=== PATIENT | male | born 1970 | race Caucasian/White ===

== ENCOUNTER 2016-10-04 08:04 | Day surgery (SDC) | payer OTHER ==
[~2016-10-04] VITALS: Ht 170.2 cm; Wt 70.3 kg
[~2016-10-04 08:04] MED LIST: BUPIVACAINE MPF 0.5% 30 ML VIAL. ONE; EPINEPHrine VIAL 30 MG/30 ML VIAL ONE; HYDROmorphone 2 MG/ML VIAL IV PRN; IV RINGERS,LACTATED 1000ML 1,000 ML IV SCH; LIDOCAINE 1% 1 ML SYRINGE. ID PRN; LIDOCAINE 1% PF 30 ML VIAL. ONE; MORPHINE SULFATE 2 MG/ML DISP.SYRIN. IV PRN; ONDANSETRON PF 4 MG/2 ML VIAL. IV PRN; PROCHLORPERAZINE 10 MG/2 ML VIAL. IV PRN; fentaNYL PF VIAL 100 MCG/2 ML VIAL IV PRN
[2016-10-04] MEDS ORDERED: DICL75TA PO (08:34)
[2016-10-04] MEDS ORDERED: HYDR-971 PO (08:34)
[2016-10-04] MEDS ORDERED: LIDOCAINE 2% PF Vial for OR 5 ML VIAL. ONE (08:38)
[2016-10-04] MEDS ORDERED: DEXAMETHASONE SOD PHOS 20 MG/5 ML VIAL. ONE (08:38)
[2016-10-04] MEDS ORDERED: PROPOFOL 20 ML IV ONE (08:38)
[2016-10-04] MEDS ORDERED: ONDANSETRON PF 4 MG/2 ML VIAL. ONE (08:38)
[2016-10-04] MEDS ORDERED: fentaNYL PF VIAL 100 MCG/2 ML VIAL ONE ×2 (08:38→10:14)
[2016-10-04] MEDS ORDERED: DESFLURANE 61 TO 120 MINUTES IH ONE (08:38)
--- NOTE | 2016-10-04 09:17 | DISCH ---
DISCHARGE INSTRUCTIONS Condition on Discharge Condition on Discharge: Stable Activity After Discharge Activity Instructions for Disc: Activity as tolerated Bathing Instructions: Shower-keep dressing dry Weight Bearing Status after Di: As tolerated Diet after Discharge Diet after Discharge: Regular Wound Incision Care Wound/Incision Care: Ice to area for comfort, Keep wound/cast CDI, Change dressing Contacting the DRMine after DC Call your doctor for: Concerns you may have Follow-Up Follow up with: Jasbir in 2wks PEREZ ACOSTA II, MD Oct 04, 2016 09:17
--- NOTE | 2016-10-04 09:19 | PDOC ---
BRIEF OPERATIVE NOTE Date: Oct 04, 2016 Pre-Op Diagnosis R knee meniscal tears Post-Op Diagnosis same Procedure Performed Right knee scope, partial meniscectomies Surgeon Jasbir Anesthesiologist Aaron Anesthesia Type: General Blood Loss 10mL Complications none PEREZ ACOSTA II, MD Oct 04, 2016 09:19
[2016-10-04] MEDS: fentaNYL PF VIAL 100 MCG/2 ML VIAL IV PRN ×2 (10:18→10:44)
[2016-10-04] MEDS ORDERED: HYDROcodone/APAP 5/325MG 1 TAB TABLET PO ONE (10:30)
--- NOTE | 2016-10-04 10:31 | OP ---
DATE OF SURGERY: 10/04/2016 SURGEON: Baltazar Acosta MD NEWBORN PHOTOGRAPHER: None. PREOPERATIVE DIAGNOSIS: Right knee medial and lateral meniscus tears. POSTOPERATIVE DIAGNOSIS: Right knee medial and lateral meniscus tears. PROCEDURE PERFORMED: Right knee arthroscopy and partial medial and lateral meniscectomy. COMPLICATIONS: None. TOURNIQUET TIME: 23 minutes BLOOD LOSS: 10 mL FINDINGS: The patient had intact cartilage at his patellofemoral articulation, medial and lateral compartments. He had an oblique undersurface tear of his medial meniscus at the posterior portion of the body. He had a complex lateral meniscus tear involving the mid portion of the body as well. Intact cruciate ligaments. COMPLICATIONS: None. REASON FOR PROCEDURE: The patient is a very pleasant 45-year-old gentleman with primarily medial knee pain after an injury a couple of months ago. We had tried conservative therapies on him but after those failed to alleviate his pain successfully, we had discussion of risks, benefits, alternatives to the above surgery after clinical radiographic and MRI examinations were performed by myself. After reviewing these and discussing options with him, he wished to proceed with the above surgery. DESCRIPTION OF PROCEDURE: The patient was greeted in the preoperative area by myself, where the correct extremity was marked and verified. He was taken to the operative suite and his antibiotics were started en route. Once in the OR, he was transferred gently supine to the OR table and secured to the bed with all pressure points padded. He then underwent successful induction with general anesthetic. After this, we applied a padded foot rest as well as a bolster at his lateral hip and a nonsterile tourniquet to his left upper thigh. We then proceeded to prep and drape left lower extremity in our usual sterile fashion and conducted our standard preoperative timeout. After this was accomplished, I palpated and marked surface anatomy and made my standard anterolateral arthroscopic portal and introduced a blunt arthroscopic trocar into the suprapatellar pouch. I then conducted my diagnostic arthroscopy with the above noted findings and upon entering the medial compartment, I used a spinal needle to localize the anteromedial portal and introduced a probe and then inspected the medial meniscus tear. I then used a combination of shaver and biter to trim the loose flap back to stable edges. I then placed the leg in a [id number] position and used a combination of shaver and biters to debride his lateral meniscus tear back to stable edges. I then used a probe to ensure that there were no more loose flaps at either meniscal tear. After this, I introduced a shaver and camera into the suprapatellar pouch and performed repeated aspiration maneuvers through the shaver to ensure I had removed any loose pieces. I then removed all excess arthroscopic fluid and the arthroscopic instrumentation. His portals were closed with simple interrupted 3-0 nylon. I then injected a local anesthetic mixture into the periportal areas. Now, we then placed Xeroform, sterile gauze, ABD, sterile cast padding and Raul wrap to his knee. He was then awakened from anesthesia, he tolerated surgery well. No complications. At the conclusion of surgery, he was awakened from anesthesia and transferred gently supine to the recovery room cart and taken to PACU in stable and extubated condition. Postoperative plan is to discharge the patient home. He will be weightbearing as tolerated. He will follow up with me in 2 weeks. We did discuss rehab and he would to like to work on his own for a while. BALTAZAR ACOSTA MD DR: EMILY/hugh JOB#: [id number] / [id number] TINO
[2016-10-04 10:55] VITALS: BP 130/60
--- NOTE | 2016-10-05 09:47 | PDOC4 ---
Operative Note Operative Note The surgical procedure performed 10/04/2016 was left knee arthroscopy, not right , with partial medial and partial lateral meniscectomies PEREZ ACOSTA II, MD Oct 05, 2016 09:47
== END 2016-10-04 11:22 | disposition home or self-care (01) ==
LOC: SURG 08:04
PROVIDERS: ATTEND Orthopaedic Surgery Sports Medicine
DX: S83.281A Other tear of lateral meniscus, current injury, right knee, initial encounter (principal); S83.241A Other tear of medial meniscus, current injury, right knee, initial encounter; X58.XXXA Exposure to other specified factors, initial encounter; Y93.89 Activity, other specified; Y92.89 Other specified places as the place of occurrence of the external cause; Y99.9 Unspecified external cause status; Z87.39 Personal history of other diseases of the musculoskeletal system and connective tissue
CPT/HCPCS: 29880; J0171; J0690; J1100; J2405; J2704; J3010; J3490; C1782; J7120; J2001

== ENCOUNTER → 2018-09-16 | Outpatient (CLI) | payer OTHER ==
[~2018-09-16] MED LIST changes: -BUPIVACAINE MPF 0.5% 30 ML VIAL. ONE; +DICL75TA PO; -EPINEPHrine VIAL 30 MG/30 ML VIAL ONE; +HYDR-3164 PO; -HYDROmorphone 2 MG/ML VIAL IV PRN; -IV RINGERS,LACTATED 1000ML 1,000 ML IV SCH; -LIDOCAINE 1% 1 ML SYRINGE. ID PRN; -LIDOCAINE 1% PF 30 ML VIAL. ONE; -MORPHINE SULFATE 2 MG/ML DISP.SYRIN. IV PRN; -ONDANSETRON PF 4 MG/2 ML VIAL. IV PRN; -PROCHLORPERAZINE 10 MG/2 ML VIAL. IV PRN; -fentaNYL PF VIAL 100 MCG/2 ML VIAL IV PRN
--- NOTE | 2018-09-16 09:45 | RAD ---
Examination: MRI of the right knee without contrast HISTORY: History of medial right anterior knee pain COMPARISON: None available Technique: Multiplanar, multisequence MR imaging of the right knee was performed without contrast. FINDINGS: The anterior cruciate ligament, posterior cruciate ligament appear intact. There is increased T2 signal identified in the inferior articular surface of the body and posterior horn of the medial meniscus likely tear. Lateral meniscus appears intact. The medial collateral ligament is intact. The lateral collateral ligamentous complex including the fibular collateral ligament, biceps femoris tendon, popliteus tendon appear intact. The extensor mechanism is intact. Small knee joint effusion is identified. The medial retinaculum, lateral retinaculum appear intact. Minimal superficial fraying of cartilage identified in the medial, lateral, patellofemoral compartments. There is mild trabecular edema identified in the medial femoral condyle. IMPRESSION: 1. Tear of the body and posterior horn of the medial meniscus. 2. Grade I chondromalacia medial compartment with mild trabecular edema identified in the medial femoral condyle. 3. Small knee joint effusion. Electronically signed by: Shadi Davis MD (09/16/2018 9:42 AM) [id number]
== END | disposition home or self-care (01) ==
LOC: MRI 08:04
PROVIDERS: ATTEND Orthopaedic Surgery Sports Medicine
DX: S83.241A Other tear of medial meniscus, current injury, right knee, initial encounter (principal); M94.261 Chondromalacia, right knee; M25.461 Effusion, right knee; X58.XXXA Exposure to other specified factors, initial encounter; Y93.89 Activity, other specified; Y92.89 Other specified places as the place of occurrence of the external cause; Y99.8 Other external cause status
CPT/HCPCS: 73721

== ENCOUNTER → 2018-09-23 | Day surgery (SDC) | payer OTHER ==
[~2018-09-23] VITALS: Ht 170.2 cm; Wt 73.9 kg
[~2018-09-23] MED LIST changes: +BUPIVACAINE MPF 0.5% 30 ML VIAL. ONE; +DEXAMETHASONE SOD PHOS 4 MG/ML VIAL ONE; +EPINEPHrine VIAL 30 MG/30 ML VIAL ONE; +HYDROcodone/APAP 5/325MG 1 TAB TABLET PO ONE; +HYDROmorphone 2 MG/ML VIAL IV PRN; +IBUP200T44 PO; +IV RINGERS,LACTATED 1000ML 1,000 ML IV SCH; +KETOROLAC 30 MG/ML INJ FOR OR. INJ ONE; +LIDOCAINE 1% PF 2 ML VIAL. ID PRN; +LIDOCAINE 1% PF 30 ML VIAL. ONE; +LIDOCAINE 2% PF 5 ML VIAL. ONE; +MIDAZOLAM HCL/PF 2 MG/2 ML VIAL. ONE; +MORPHINE SULFATE 2 MG/ML VIAL. IV PRN; +ONDANSETRON PF 4 MG/2 ML VIAL. IV PRN; +ONDANSETRON PF 4 MG/2 ML VIAL. ONE; +PROCHLORPERAZINE 10 MG/2 ML VIAL. IV PRN; +PROPOFOL 20 ML IV ONE; +SEVOFLURANE 31 TO 60 MINUTES. IH ONE; +ePHEDrine PF IN SALINE 50 MG/10 ML SYRINGE. IV ONE; +fentaNYL PF VIAL 100 MCG/2 ML VIAL IV PRN; +fentaNYL PF VIAL 100 MCG/2 ML VIAL ONE
--- NOTE | 2018-09-23 08:42 | DISCH ---
DISCHARGE INSTRUCTIONS Condition on Discharge Condition on Discharge: Stable Activity After Discharge Activity Instructions for Disc: Activity as tolerated Bathing Instructions: Shower-keep dressing dry Weight Bearing Status after Di: As tolerated Diet after Discharge Diet after Discharge: Regular Wound Incision Care Wound/Incision Care: Ice to area for comfort, Keep wound/cast CDI, Change dressing Contacting the DRMine after DC Call your doctor for: Concerns you may have Follow-Up Follow up with: Jasbir in 2 wks PEREZ ACOSTA II, MD Sep 23, 2018 08:42
[2018-09-23 08:43] VITALS: BP 138/79
--- NOTE | 2018-09-23 08:49 | PDOC4 ---
Operative Note Operative Note Date of procedure: 09/23/18 Surgeon: Baltazar Acosta Asst.: none Preoperative diagnosis: right knee medial meniscus tear Postoperative diagnosis: same Procedure performed: right knee arthroscopic partial medial meniscectomy Anesthesia: Gen. Tourniquet Time: less than 30 minutes Blood loss: 5 mL�s Findings: #1 horizontal cleavage tear medial meniscus #2 intact cruciate ligaments #3 very minor fraying of the free edge at the lateral meniscus #4 intact cartilage at patellofemoral joint, medial and lateral compartments #5 no loose bodies Reason for procedure: Patient is very pleasant individual who had seen and evaluated in my outpatient orthopedic surgery clinic for complaints of medial ri ght knee pain that was worse with twisting motions and uneven ground, similar to what he had experienced during his left knee meniscus tear.. Clinical and radiographic examination was consistent with the preoperative diagnosis and we had a discussion of the risks, benefits, and alternatives to the above surgery and the patient wished to proceed. Description of procedure: Patient was greeted in the preoperative holding area by myself for the correct extremity was verified and marked. There were taken back to the operative suite, antibiotic started as they were brought back. Once in the operating room, the patient was transferred gently supine to the operative room table and secured the bed with all pressure points padded and underwent successful induction of a general anesthetic. After this, we applied a nonsterile tourniquet to the operative thigh and taped in place. A padded bump w as secured to bed laterally at the hip and a padded rest across the foot of the bed to maintain the knee at 90� passively. Examination under anesthesia demonstrated a knee that was stable to varus and valgus in extension and 30� of flexion and had full range of motion. After this, the operative extremity was prepped and draped in our usual sterile fashion and we conducted our standard preoperative timeout. I palpated and marked surface anatomy and yohannes lines my planned anterolateral and anteromedial portals. The extremity was exsanguinated with an Esmarch and tourniquet insufflated to 250 mmHg. I then incised skin for my anterolateral arthroscopic portal and introduced the blunt arthroscopic trocar into the suprapatellar pouch followed by the camera. I conducted my diagnostic arthroscopy with above noted findings and upon entering the medial compartment used a spinal needle to localize the anteromedial portal. I incised skin in accordance with this and dilated this well. I introduce my probe and continued on with my diagnostic arthroscopy, with the above-noted findings. I took down some of the fat pad and ligamentum mucosum for visualization and placed his knee in a byqudl-kd-xork position and then debrided the very minor free edge fraying at his lateral meniscus. I then redirected my attention to the medial compartment and using combination of shaver and arthroscopic biter trimmed his medial meniscus tear back to stable edges. After this, I reinspected the knee joint to ensure had removed any loose debris. I then placed my camera and shaver in the suprapatellar pouch and performed repeated aspiration maneuvers through the shaver with palpation at the posterior aspect of the knee as well. After this, I removed all excess arthroscopic fluid and the arthroscopic instrumentation. Portals were closed with simple interrupted 2-0 nylon. I injected local anesthetic mixture around the brandee-portal skin. The leg was cleansed and dried and a sterile soft bulky dressing was applied followed by an Raul wrap. Tourniquet was let down. Patient was awakened from anesthesia. He tolerated surgery well. He was taken to the PACU in a stable and extubated condi tion. Postoperative plan is to allow weightbearing as tolerated. I will see him back in my clinic in 2 weeks, sooner should a problem arise. BALTAZAR ACOSTA II, MD Sep 23, 2018 08:49
== END ==
LOC: SURG 06:03
PROVIDERS: ATTEND Orthopaedic Surgery Sports Medicine
DX: S83.281A Other tear of lateral meniscus, current injury, right knee, initial encounter (principal); S83.241A Other tear of medial meniscus, current injury, right knee, initial encounter; M79.4 Hypertrophy of (infrapatellar) fat pad; Z85.828 Personal history of other malignant neoplasm of skin; Z98.890 Other specified postprocedural states; Z72.89 Other problems related to lifestyle; X58.XXXA Exposure to other specified factors, initial encounter; Y93.89 Activity, other specified; Y92.89 Other specified places as the place of occurrence of the external cause; Y99.8 Other external cause status
CPT/HCPCS: 29880; A7015; C1782; J0171; J0690; J1100; J1885; J2001; J2250; J2405; J2704; J3010; J3490